=== PATIENT | male | born 1975 | race Caucasian/White ===

== ENCOUNTER 2018-01-21 17:42 | Inpatient (IN) | payer BC, OTHER ==
--- NOTE | 2018-01-21 17:22 | NUR ---
Pre-Admission patient met in intake office, he is teary , sweating and anxious, he claims he was discharged from [facility] this AM after being admitted for Withdrawal symptoms, anxiety and Nausea. He reports that he is here for a supervised withdrawal from Benzodiazepines ( Xanax and Klonopin) and Subutex. History Use: Xanax 30-40mg PO daily last used 5mg 48 hours ago Subutex 24-32mg SL daily last had 8mg @ 0900 today Methamphetamines 2.5G IV daily for past 3 weeks. He was given Ativan 1mg IV x2 01/20/18 @ [facility] Klonopin 4mg PO @ 0900 01/21/19 @ [facility] Subutex 8mg SL @ 0400/0900 01/21/18 @ [facility] Vital Signs : BP= 125/88, HR= 101, RR 20, O2 Sats 98% PCP is Dr Chicho Cardona ( addictologist in [place] ) Last Seizure x 6months ago from Benzodiazepines He take Vyvanse 70mg /dy for ADHD Doxepin 6mg po HS for Insomnia Minipress for PTSD Allergy to Haldol--EPS Dr Bello will evaluate patient.
== END 2018-01-21 18:41 | disposition left against medical advice (07) | DRG 894 ==
LOC: SRC 17:42
PROVIDERS: ADMIT Family Medicine Addiction Medicine; ATTEND Family Medicine Addiction Medicine
DX: F13.239 Sedative, hypnotic or anxiolytic dependence with withdrawal, unspecified (principal); Z75.3 Unavailability and inaccessibility of health-care facilities

== ENCOUNTER 2018-01-21 19:11 | Emergency (ER) | payer BC, OTHER ==
[~2018-01-21] VITALS: Ht 190.5 cm; Wt 104.3 kg
--- NOTE | 2018-01-21 19:22 | NUR ---
Dr. Bello at bedside for MSE.
[2018-01-21] MEDS ORDERED: ALPRAZOLAM 0.5 MG TABLET ONE (19:30)
[2018-01-21] MEDS ORDERED: ALPRAZOLAM 0.25 MG TABLET PO ONE (19:30)
--- NOTE | 2018-01-21 19:36 | NUR ---
Patient discharged to home in stable conditon. Written and verbal after care instructions given. Patient verbalizes understanding of instructions. Patient ambulated out of ER with steady gait, no acute signs of distress, VSS, all belongings taken.
[2018-01-21 19:39] VITALS: BP 156/90
== END 2018-01-21 19:40 | disposition home or self-care (01) ==
LOC: ER 19:12
DX: F11.20 Opioid dependence, uncomplicated (principal); F15.93 Other stimulant use, unspecified with withdrawal; F15.10 Other stimulant abuse, uncomplicated; J45.909 Unspecified asthma, uncomplicated; Z88.8 Allergy status to other drugs, medicaments and biological substances
CPT/HCPCS: 99283; A4663

== ENCOUNTER 2018-01-22 00:14 | Emergency (ER) | payer BC ==
[~2018-01-22] VITALS: Ht 190.5 cm; Wt 104.3 kg
--- NOTE | 2018-01-22 01:28 | NUR ---
Dr. Bello at bedside for MSE.
--- NOTE | 2018-01-22 02:02 | NUR ---
Pt refused IV.
--- NOTE | 2018-01-22 02:27 | NUR ---
Xray at bedside.
--- NOTE | 2018-01-22 02:30 | NUR ---
Pt refused CT.
--- NOTE | 2018-01-22 02:35 | NUR ---
Pt states unable to give urine sample at this time.
[2018-01-22 02:41] LABS: BASOPHILS % (AUTO) 0.7 % (0.0-2.0); EOSINOPHILS # (AUTO) 0.3 K/uL (0.0-0.7); EOSINOPHILS % (AUTO) 6.2 % (0.0-7.0); HEMATOCRIT 41.7 % (36.7-47.1); HEMOGLOBIN 14.5 g/dL (12.5-16.3); LYMPHOCYTES # (AUTO) 1.9 K/uL (20.0-40.0); LYMPHOCYTES % (AUTO) 37.4 % (20.5-51.5); MEAN CORPUSCULAR HEMOGLOBIN 31.1 uug (23.8-33.4); MEAN CORPUSCULAR HGB CONC 35 g/dL (32.5-36.3); MEAN CORPUSCULAR VOLUME 89.4 fL (73.0-96.2); MONOCYTES # (AUTO) 0.5 K/uL (2.0-10.0); MONOCYTES % (AUTO) 9.3 % (0.0-11.0); NEUTROPHILS # (AUTO) 2.4 K/uL (1.8-8.9); NEUTROPHILS % (AUTO) 46.4 % (38.5-71.5); PLATELET COUNT (AUTO) 191 K/uL (152-348); RED BLOOD CELL COUNT(AUTO) 4.66 MIL/uL (4.06-5.63); WHITE BLOOD COUNT (AUTO) 5.1 K/uL (3.6-10.2)
[2018-01-22 02:45] LABS: ETHANOL < 3 MG/DL (0-0)
[2018-01-22 02:49] LABS: CARBON DIOXIDE 27 mmol/L (21-32); CHLORIDE 106 mmol/L (98-107); CREATININE 0.8 mg/dL (0.6-1.3); GLUCOSE 116 mg/dL (74-106); POTASSIUM 3.6 mmol/L (3.5-5.1); UREA NITROGEN, BLOOD 16 mg/dL (7-18)
[2018-01-22 02:55] LABS: ACETAMINOPHEN < 2.0 ug/mL (10-30); ALANINE AMINOTRANSFERASE 50 U/L (16-63); ALKALINE PHOSPHATASE 111 U/L (50-136); ASPARTATE AMINOTRANSFERASE 24 U/L (15-37); BILIRUBIN,DIRECT 0.1 mg/dL (0.0-0.2); BILIRUBIN,TOTAL 0.4 mg/dL (0.2-1.0); TOTAL PROTEIN, SERUM 7.4 g/dL (6.4-8.2)
[2018-01-22 02:59] LABS: THYROID STIMULATING HORMONE 0.988 mIU/mL (0.358-3.740)
--- NOTE | 2018-01-22 03:03 | NUR ---
Patient discharged to home in stable conditon. Written and verbal after care instructions given. Patient verbalizes understanding of instructions. Pt ambulated out of ER with steady gait, no acute signs of distress, VSS, no acute signs of distress.
[2018-01-22 03:04] VITALS: BP 134/85
== END 2018-01-22 03:14 | disposition home or self-care (01) ==
LOC: ER 00:17
DX: F15.10 Other stimulant abuse, uncomplicated (principal); F11.20 Opioid dependence, uncomplicated; F15.93 Other stimulant use, unspecified with withdrawal; Z76.5 Malingerer [conscious simulation]; J45.909 Unspecified asthma, uncomplicated; Z88.8 Allergy status to other drugs, medicaments and biological substances
CPT/HCPCS: 36415; 71045; 80048; 80076; 82140; 84443; 85025; 93005; 99285; A4663; G0480 ×2; G0481

== ENCOUNTER 2022-09-04 01:19 | Emergency (ER) | payer BC ==
[~2022-09-04] VITALS: Ht 190.5 cm; Wt 95.3 kg
--- NOTE | 2022-09-04 03:00 | NUR ---
Dr. Bello at bedside for MSE.
[2022-09-04] MEDS ORDERED: IV NORMAL SALINE 1000 ML BAG IV ONE (03:15)
[2022-09-04] MEDS ORDERED: LORAZEPAM 2 MG/1 ML VIAL IV ONE (03:15)
[2022-09-04 03:47] LABS: *BILIRUBIN,URIN NEGATIVE (NEGATIVE); *BLOOD, URINE NEGATIVE (NEGATIVE); *CLARITY,URINE CLEAR (CLEAR); *COLOR,URINE YELLOW (YELLOW); *KETONES,URINE NEGATIVE (NEGATIVE); LEUKOCYTE ESTERASE ,URINE NEGATIVE (NEGATIVE); NITRITE, URINE NEGATIVE (NEGATIVE); UGLUCOSE NEGATIVE (NEGATIVE)
[2022-09-04] MEDS ORDERED: LORAZEPAM 2 MG/1 ML VIAL ONE (03:47)
[2022-09-04] MEDS ORDERED: LORA2TAB95 PO (03:59)
[2022-09-04 04:00] LABS: *AMPHETAMINE, URINE POSITIVE (NEGATIVE); *CANNABINOID, URINE NEGATIVE (NEGATIVE); *COCCAINE, URINE NEGATIVE (NEGATIVE); *PHENCYCLIDINE SCREEN,URINE NEGATIVE (NEGATIVE)
--- NOTE | 2022-09-04 07:02 | NUR ---
Patient discharged to home in stable condition. Written and verbal after care instructions given. Patient verbalizes understanding of instructions. Stressed follow up or return to ER for worsening s/s. Patient out of ER with steady gait, no acute signs of distress, VSS, all belongings taken, IV site discontinued, provided with copies of lab results.
[2022-09-04 07:03] VITALS: BP 112/75
== END 2022-09-04 07:03 | disposition home or self-care (01) ==
LOC: ER 01:22
DX: F15.23 Other stimulant dependence with withdrawal (principal); F19.90 Other psychoactive substance use, unspecified, uncomplicated; F17.210 Nicotine dependence, cigarettes, uncomplicated; Z71.6 Tobacco abuse counseling; Z88.8 Allergy status to other drugs, medicaments and biological substances; Z20.822 Contact with and (suspected) exposure to COVID-19
CPT/HCPCS: 99284; 96374; 96361; 87426; 99406; 82962; 93005; 80307; 81001; J2060; J7040; A4663